=== PATIENT | male | born 2000 | race Caucasian/White ===

== ENCOUNTER 2018-06-15 20:22 | Emergency (ER) | payer BC ==
--- NOTE | 2018-06-15 20:33 | ED ---
Complex/Multi-Sys Presentation - HPI Summary HPI Summary: LEVEL 5 CAVEAT: HPI UNOBTAINABLE DUE TO PT INTOXICATION - History Of Current Complaint Time Seen by Provider: 06/15/18 20:24 Hx From Patient Unobtainable Due To: Altered Mental Status - Allergies/Home Medications Allergies/Adverse Reactions: Allergies Allergy/AdvReac Type Severity Reaction Status Date / Time No Known Allergies Allergy Verified 06/15/18 20:31 PMH/Surg Hx/FS Hx/Imm Hx - Additional Comments History Additional Comments: LEVEL 5 CAVEAT: HISTORY UNOBTAINABLE DUE TO PT INTOXICATION. Review of Systems - ROS Summary Review of Systems Summary: LEVEL 5 CAVEAT: HISTORY UNOBTAINABLE DUE TO LEVEL 5 CAVEAT All Other Systems Reviewed And Are Negative: No Physical Exam - Summary Physical Exam Summary: Appearance: Well-appearing, Well-nourished, lying in bed comfortable. Intoxicated. Skin: Warm, dry, no obvious rash Eyes: sclera anicteric, no conjunctival pallor ENT: mucous membranes moist Neck: deferred Respiratory: No signs of respiratory distress Cardiovascular: Appears well perfused, pulses are nml Abdomen: deferred Musculoskeletal: Moving all 4 extremities without obvious discomfort Neurological: Awake and alert, mentation is normal, speech is fluent and appropriate Psychiatric: affect is normal, does not appear anxious or depressed Triage Information Reviewed: Yes Vital Signs Reviewed: Yes Complex Multi-Symp Course/Dx Course Of Treatment: LEVEL 5 CAVEAT. Patient is a 17 year old male presenting with alcohol intoxication. Patient's father arrived to pick him up. Examination was unremarkable for any other medical problems. Patient's father came to pick him up. Plan for discharge was discussed with patient and his father and were agreeable with this plan. - Diagnoses Provider Diagnoses: Alcohol intoxication Discharge - Sign-Out/Discharge Documenting (check all that apply): Patient Departure - Discharge - Discharge Plan Condition: Stable Disposition: HOME Patient Education Materials: Alcohol Intoxication (ED) Referrals: [facility] [Outside] No Primary Care Phys,[facility] [Primary Care Provider] - Additional Instructions: Return to ED with any new or worsening symptoms. - Billing Disposition and Condition Condition: STABLE Disposition: Home - Attestation Statements Document Initiated by Scribe: Yes Documenting Scribe: Aaron Silveira Provider For Whom Scribe is Documenting (Include Credential): Troy Ferreira MD Scribe Attestation: Aaron Rojo scribed for Troy Ferreira MD on 06/16/18 at 0605. Scribe Documentation Reviewed: Yes Provider Attestation: The documentation as recorded by the scribe, Aaron Silveira accurately reflects the service I personally performed and the decisions made by me, Troy Ferreira MD
[2018-06-16 01:56] VITALS: BP 108/64
== END 2018-06-16 01:55 | disposition home or self-care (01) ==
LOC: ED 20:22
DX: F10.129 Alcohol abuse with intoxication, unspecified (principal)
CPT/HCPCS: 99283